=== PATIENT | female | born 1980 | race Caucasian/White ===

== ENCOUNTER 2018-05-04 14:41 | Emergency (ER) | payer SELFPAY ==
[~2018-05-04] VITALS: Ht 170.2 cm; Wt 62.5 kg
[2018-05-04] MEDS ORDERED: KEFLEX500 M1 PO (16:12)
[2018-05-04 16:15] VITALS: BP 116/79
== END 2018-05-04 16:15 | disposition home or self-care (01) | DRG 605 ==
LOC: ED 14:41
PROC: 0HQFXZZ Repair Right Hand Skin, External Approach (ICD-10-PCS; principal; 2018-05-04)
DX: S61.011A Laceration without foreign body of right thumb without damage to nail, initial encounter (principal); F17.210 Nicotine dependence, cigarettes, uncomplicated; W26.8XXA Contact with other sharp object(s), not elsewhere classified, initial encounter; Y92.009 Unspecified place in unspecified non-institutional (private) residence as the place of occurrence of the external cause